=== PATIENT | male | born 2000 | race Caucasian/White ===

== ENCOUNTER 2018-12-09 21:05 | Emergency (ER) | payer BC ==
[2018-12-09] MEDS ORDERED: Ketorolac 30 MG/ML SDV IM ONE (21:15)
[2018-12-09] MEDS ORDERED: Acetaminophen/HYDROcodone 325-10 MG Tab PO ONE (21:33)
--- NOTE | 2018-12-09 21:33 | EDM.PDOC ---
ED HPI GENERAL MEDICAL PROBLEM - General Chief Complaint: Lower Extremity Injury/Pain Stated Complaint: right hamstring pull Time Seen by Provider: 12/09/18 21:09 Source of Information: Reports: Patient History Limitations: Reports: No Limitations - History of Present Illness INITIAL COMMENTS - FREE TEXT/NARRATIVE: Patient reports that while he was working out last Thursday he began having significant leg pain and believes he pulled his hamstring. There was not a specific moment he remembers injuring himself, it happened long after the lifting. He is having severe cramps, throbbing, and has been seen at 2 other medical facilities. Does have prescription for flexeril which he said is not helping. Is not walking around or ambulating much at all. He denies any additional injuries. Denies drug or alcohol use. He does state he injured the same leg last year, but this is much worse. Onset: Gradual Duration: Getting Worse Severity: Severe - Related Data Allergies Allergy/AdvReac Type Severity Reaction Status Date / Time No Known Allergies Allergy Verified 12/09/18 21:20 Home Meds: Home Meds Cyclobenzaprine [Flexeril] 10 mg PO TID 12/09/18 [History] Review of Systems - Review of Systems Review Of Systems: See Below Constitutional: Reports: No Symptoms Eyes: Reports: No Symptoms Ears: Reports: No Symptoms Nose: Reports: No Symptoms Mouth/Throat: Reports: No Symptoms Respiratory: Reports: No Symptoms Cardiovascular: Reports: No Symptoms GI/Abdominal: Reports: No Symptoms Genitourinary: Reports: No Symptoms Musculoskeletal: Reports: Back Pain, Leg Pain (pain from upper right buttocks down to bottom of foot posterior) Skin: Reports: No Symptoms Neurological: Reports: No Symptoms ED EXAM, GENERAL - Physical Exam Exam: See Below Exam Limited By: No Limitations General Appearance: Alert, WD/WN, Moderate Distress Eye Exam: Bilateral Eye: EOMI, PERRL Respiratory/Chest: No Respiratory Distress, Lungs Clear, Normal Breath Sounds, No Accessory Muscle Use, Chest Non-Tender Cardiovascular: Normal Peripheral Pulses, Regular Rate, Rhythm, No Edema, No Gallop, No JVD, No Murmur, No Rub Back Exam: Muscle Spasm, Other (straight leg exam exhibits pain). No: Full Range of Motion Extremities: Leg Pain, Limited Range of Motion Neurological: Alert, Oriented, CN II-XII Intact, Normal Cognition, Normal Gait, Normal Reflexes, No Motor/Sensory Deficits Psychiatric: Normal Affect, Normal Mood Skin Exam: Warm, Dry, Intact, Normal Color, No Rash Lymphatic: No Adenopathy Course - Orders/Labs/Meds Meds: Medications Discontinued Medications Generic Name Dose Route Start Last Admin Trade Name Robi PRN Reason Stop Dose Admin Hydrocodone Bitart/Acetaminophen 1 tab 12/09/18 21:33 12/09/18 21:56 [place] 325-10 Mg PO 12/09/18 21:34 1 tab ONETIME ONE Administration Hydrocodone Bitart/Acetaminophen 1 packet 12/09/18 21:49 12/09/18 21:58 Take Home: Acetaminophen/Hydrocodone 325-10mg PO 12/09/18 21:50 1 packet ONETIME ONE Administration Ketorolac Tromethamine 30 mg 12/09/18 21:15 12/09/18 21:25 Toradol IM 12/09/18 21:16 30 mg ONETIME ONE Administration Morphine Sulfate 2 mg 12/09/18 21:41 12/09/18 21:52 Morphine IM 12/09/18 21:42 2 mg ONETIME ONE Administration Prednisone 40 mg 12/09/18 21:34 12/09/18 21:56 Prednisone PO 12/09/18 21:35 40 mg ONETIME ONE Administration Departure - Departure Time of Disposition: 22:20 Disposition: Home, Self-Care 01 Condition: Fair Clinical Impression: Back pain with right-sided radiculopathy - Discharge Information *PRESCRIPTION DRUG MONITORING PROGRAM REVIEWED*: Yes *COPY OF PRESCRIPTION DRUG MONITORING REPORT IN PATIENT DAVID: Yes Instructions: Back Injury Prevention, [id number], Back Exercises, Easy-to- Read, Pain Medicine Instructions, [id number] Forms: ED Department Discharge Additional Instructions: Plan 1. MRI on Thursday. They will call to arrange a time. 2. Follow up will be with Dr. Alexandra Sams at the [facility] in [place]. Make the appointment for 1-2 hours after your MRI has been taken or for Thursday to be sure the test has been read by radiology and she is able to review it with you. 3. Take the medication as prescribed. You need to move as much as you are able. Alternate heat with ice, use lidocaine patch from the store. 4. Please call if you have any additional questions or concerns. - Problem List & Annotations (1) Back pain with right-sided radiculopathy SNOMED Code(s): 777159897, [id number] Code(s): M54.10 - RADICULOPATHY, SITE UNSPECIFIED Status: Acute Priority : Medium Current Visit: No - Problem List Review Problem List Initiated/Reviewed/Updated: Yes - Assessment/Plan Assessment:: back pain with right sided radiculopathy Plan: Plan 1. MRI on Thursday. They will call to arrange a time. 2. Follow up will be with Dr. Alexandra Sams at the [facility] in [place]. Make the appointment for 1-2 hours after your MRI has been taken or for Thursday to be sure the test has been read by radiology and she is able to review it with you. 3. Take the medication as prescribed. You need to move as much as you are able. Alternate heat with ice, use lidocaine patch from the store. 4. Please call if you have any additional questions or concerns.
[2018-12-09] MEDS ORDERED: predniSONE 20 MG Tab PO ONE (21:34)
[2018-12-09] MEDS ORDERED: Morphine 2 MG/ML Syringe IM ONE (21:41)
[2018-12-09] MEDS ORDERED: Take Home: Acetaminophen/HYDROcodone 325-10 MG, 5 Tab Pack PO ONE (21:49)
== END 2018-12-09 22:20 | disposition home or self-care (01) ==
LOC: VM.ED 21:05
DX: M54.16 Radiculopathy, lumbar region (principal); M62.830 Muscle spasm of back
CPT/HCPCS: 96372; 99283; A9270; J1885; J2270